=== PATIENT | female | born 1955 | race Caucasian/White ===

== ENCOUNTER 2017-12-12 09:27 | Day surgery (SDC) | payer MEDICARE, BC ==
[2017-12-07 15:47] VITALS: BMI 18.5
[~2017-12-12 09:27] MED LIST: LACTATED RINGERS 1,000 ML IV SCH; LIDOCAINE 1% 20 ML VIAL (10MG/ML) FOR IV START INTRADERMA PRN
[2017-12-12 09:47] VITALS: TEMP 99
[2017-12-12] MEDS ORDERED: SODIUM CHLORIDE 0.9% 1,000 ML IV ONE (09:59)
[2017-12-12] MEDS ORDERED: LIDOCAINE 1% INJ 10MG/ML (20 ML MDV) ONE (10:10)
[2017-12-12] MEDS ORDERED: PROPOFOL 10 MG/ML 20 ML VIAL IV ONE (10:10)
--- NOTE | 2017-12-12 10:12 | P.GSHP ---
History of Present Illness H&P Date: 12/12/17 CHIEF COMPLAINT: Colon screen HISTORY OF PRESENT ILLNESS: The patient is a 62-year-old female who presents for colon screen. Lower endoscopy was offered for further evaluation and management. PAST MEDICAL HISTORY: Please see list. PAST SURGICAL HISTORY: Please see list. MEDICATIONS: Please see list. ALLERGIES: Please see list. SOCIAL HISTORY: No illicit drug use FAMILY HISTORY: No reports of Crohn disease or ulcerative colitis. REVIEW OF ORGAN SYSTEMS: CONSTITUTIONAL: No reports of fevers or chills. PHYSICAL EXAM: VITAL SIGNS: Stable GENERAL: Well-developed pleasant in no acute distress. HEENT: No scleral icterus. Extraocular movements grossly intact. Moist buccal mucosa. NECK: Supple without lymphadenopathy. CHEST: Unlabored respirations. Equal bilateral excursions. CARDIOVASCULAR: Regular rate and rhythm. Distal 2+ pulses. ABDOMEN: Soft, nontender, nondistended. MUSCULOSKELETAL: No clubbing, cyanosis, or edema. ASSESSMENT: 1. Colon screen. PLAN: 1. Recommend proceeding with a lower endoscopy Past Medical History Past Medical History: Dialysis, Deep Vein Thrombosis (DVT), Renal Disease, Thyroid Disorder Additional Past Medical History / Comment(s): ANEMIA. PERITONEAL DIALYSIS. DVT RT LEG History of Any Multi-Drug Resistant Organisms: None Reported Additional Past Surgical History / Comment(s): ABDOMINAL DIALYSIS CATHETER. THYROIDECTOMY. COLONOSCOPY Past Anesthesia/Blood Transfusion Reactions: No Reported Reaction Past Psychological History: No Psychological Hx Reported Smoking Status: Former smoker Past Alcohol Use History: None Reported Additional Past Alcohol Use History / Comment(s): QUIT SMOKING 2011 Past Drug Use History: Marijuana Additional Drug Use History / Comment(s): SMOKES MARIJUANA DAILY-INSTRUCTED TO REFRAIN FROM USE AT LEST 24 HOURS PRIOR TO PROCEDURE - Past Family History Mother Family Medical History: Deep Vein Thrombosis (DVT) Father Family Medical History: Cancer Medications and Allergies Home Medications Medication Instructions Recorded Confirmed Type Ferrous Sulfate [Feosol] 325 mg PO DAILY 12/07/17 12/07/17 History Levothyroxine Sodium [Synthroid] 100 mcg PO DAILY 12/07/17 12/07/17 History Renaplex-D 1 each PO DAILY 12/07/17 12/12/17 History Allergies Allergy/AdvReac Type Severity Reaction Status Date / Time codeine AdvReac Abdominal Verified 12/07/17 15:39 Pain Surgical - Exam Vital Signs Temp Pulse Resp BP Pulse Ox 98 F 81 18 112/76 97 12/12/17 09:45 12/12/17 09:45 12/12/17 09:45 12/12/17 09:45 12/12/17 09:45
--- NOTE | 2017-12-12 10:42 | P.PCN ---
Date of Procedure: 12/12/17 Description of Procedure: PREOPERATIVE DIAGNOSIS: Colonoscopy screening. History of colon polyps. POSTOPERATIVE DIAGNOSIS: Colonoscopy screening. History of colon polyps. External hemorrhoids, grade 4. Sigmoid volvulus OPERATION: Colonoscopy to the hepatic flexure. SURGEON: Kerri Marcelo MD. ANESTHESIA: MAC. INDICATIONS: The patient is a 62-year-old female who presents for colonoscopy screening. Her last colonoscopy was within 3 to 5 years ago. Benefits and risks were described and informed consent was obtained. DESCRIPTION OF PROCEDURE: The patient had undergone Gatorade, MiraLAX and Dulcolax prep. She had been brought into the operating room and laid in the left lateral decubitus position. After adequate intravenous sedation, the rectum was examined with 2% lidocaine jelly. External hemorrhoids were encountered. The rectal tone was loose. No lesions were palpated in the rectal vault. An Olympus gastric colonoscope was advanced along the rectum to a very tortuous sigmoid colon. Her colonoscopy was complicated with her incontinence to flatus. Despite multiple maneuvers, the sigmoid colon had severe tortuosity preventing further advancement of scope beyond the hepatic flexure where a tattoo was identified. No recurrence of tumor along the hepatic flexure was identified. As the patient posed high risk for perforation with persistence of the procedure, the procedure was discontinued. The colon was desufflated. The patient had tolerated the procedure well. Withdrawal time was over 6 minutes. FINDINGS: Tortuous sigmoid colon with sigmoid volvulus preventing further advancement of the scope. External prolapsed hemorrhoids, grade 4. Scope advanced to the hepatic flexure. No arteriovenous malformations. No adenomatous polyps. No focal colitis. RECOMMENDATIONS: Completion of colonoscopy evaluation with barium enema.
[2017-12-12 10:47] VITALS: RESP 16
[2017-12-12 11:14] VITALS: BP 144/79; PULSE 70
--- NOTE | 2017-12-12 16:24 | FL ---
EXAMINATION TYPE: FL barium enema DATE OF EXAM: 12/12/2017 COMPARISON: NONE HISTORY: Incomplete colonoscopy TECHNIQUE: A double air contrast barium enema study is performed. Contrast followed by air was reflu xed through the colon to the appendix. Reflux into the terminal ileum was not evident. Patient harsh ated the procedure well. FINDINGS: Reliability Engineer view of the abdomen shows overall non-obstructive bowel gas pattern. Note is made of the patient's peritoneal dialysis catheter. No suspicious area of circumferential narrowing was evident. No suspicious filling defects are eviden t. There is a single diverticulum within the mid transverse colon. The presacral space appears unrema rkable. There is normal post evacuation residual. The sigmoid colon and transverse colon are redundan t. Appendix was filled and appeared normal. Fluoroscopy time: 4 minutes 56 seconds Images: 22 IMPRESSION: 1. Normal double contrast barium enema.
== END 2017-12-12 13:29 | disposition home or self-care (01) ==
LOC: ORWHC2ENDO 09:27
PROVIDERS: ATTEND Surgery Plastic and Reconstructive Surgery
DX: Z12.11 Encounter for screening for malignant neoplasm of colon (principal); Q43.8 Other specified congenital malformations of intestine; K56.2 Volvulus; K64.3 Fourth degree hemorrhoids; Z86.010 Personal history of colon polyps; E07.9 Disorder of thyroid, unspecified; D64.9 Anemia, unspecified; N18.6 End stage renal disease; Z99.2 Dependence on renal dialysis; Z86.718 Personal history of other venous thrombosis and embolism; Z87.891 Personal history of nicotine dependence; Z79.899 Other long term (current) drug therapy; Z88.5 Allergy status to narcotic agent
CPT/HCPCS: 74270; J2001; J2704; G0105; 45378

== ENCOUNTER → 2018-02-19 | Outpatient (CLI) | payer MEDICARE, BC ==
[2018-02-19 14:33] LABS: Basophils # (A) 0.1 k/uL (0-0.2); Basophils % (A) 1 %; Eosinophils # (A) 0.4 k/uL (0-0.7); Eosinophils % (A) 3 %; HCT 36.7 % (34.0-46.0); HGB 12.5 gm/dL (11.4-16.0); Lymphocytes # (A) 2.2 k/uL (1.0-4.8); Lymphocytes % (A) 19 %; MCH 34.1 pg (25.0-35.0); MCHC 34.2 g/dL (31.0-37.0); MCV 99.5 fL (80.0-100.0); Mean Platelet Volume 7.7; Monocytes # (A) 0.6 k/uL (0-1.0); Monocytes % (A) 5 %; Neutrophils # (A) 8.1 k/uL (1.3-7.7); Neutrophils % (A) 70 %; Platelet Count 273 k/uL (150-450); RBC 3.68 m/uL (3.80-5.40); RDW 13.3 % (11.5-15.5); WBC 11.7 k/uL (3.8-10.6)
[2018-02-19 14:53] LABS: Albumin 3.7 g/dL (3.5-5.0); Calcium 10.2 mg/dL (8.4-10.2); Potassium 3.8 mmol/L (3.5-5.1); Total Bilirubin 0.6 mg/dL (0.2-1.3); Total Protein 5.8 g/dL (6.3-8.2)
--- NOTE | 2018-02-19 14:53 | XR ---
EXAMINATION TYPE: XR chest 2V DATE OF EXAM: 02/19/2018 COMPARISON: 02/19/2018 HISTORY: Shortness of breath TECHNIQUE: Frontal and lateral views of the chest are obtained. FINDINGS: Scattered senescent parenchymal changes noted. Hyperinflation compatible with COPD. No evidence for infiltrate. No evidence for atelectasis. Heart size is stable. Mediastinal structures are stable and grossly unremarkable. No evidence for hilar prominence. Degenerative changes dorsal spine. IMPRESSION: 1. No evidence for acute pulmonary disease.
== END | disposition home or self-care (01) ==
LOC: LABPAT 13:10
PROVIDERS: ATTEND Surgery Plastic and Reconstructive Surgery
DX: Z01.818 Encounter for other preprocedural examination (principal); K56.2 Volvulus; Z01.812 Encounter for preprocedural laboratory examination
CPT/HCPCS: 36415; 71046; 80053; 85025

== ENCOUNTER 2018-03-01 09:20 | Inpatient (IN) | payer MEDICARE, BC ==
[2018-02-20 15:44] VITALS: BMI 18.3
--- NOTE | 2018-03-01 07:50 | P.GSHP ---
History of Present Illness H&P Date: 03/01/18 CHIEF COMPLAINT: History of sigmoid volvulus HISTORY OF PRESENT ILLNESS: The patient is a 62-year-old female with long- standing history of chronic constipation including large bowel obstruction secondary to sigmoid volvulus. Now she presents for sigmoid colon resection. PAST MEDICAL HISTORY: Please see list. PAST SURGICAL HISTORY: Please see list. MEDICATIONS: Please see list. ALLERGIES: Please see list. SOCIAL HISTORY: No illicit drug use FAMILY HISTORY: No reports of Crohn disease or ulcerative colitis. REVIEW OF ORGAN SYSTEMS: Additionally reports: : End stage kidney disease. Peritoneal dialysis. Also has a AV fistula. Cardiovascular: History of hypertension. AV shunt along the left upper arm. CONSTITUTIONAL: No fevers or chills. HEENT: Denies any trouble with vision, hearing or nosebleeds. No difficulty swallowing. LYMPHATIC: The patient denies any lumps and bumps around the neck. ENDOCRINE: Has thyroid disorders. Denies any blood sugar glucose intolerance. RESPIRATORY: Denies pneumonia. Denies any troubles with breathing or dyspnea on exertion. GASTROINTESTINAL: Denies fatty food intolerance. Denies change in bowel habits and gas bloat. MUSCULOSKELETAL: Denies any back pain, stiffness or joint arthritis. NEUROLOGIC: Denies any numbness or tingling along the distal extremities. No seizure disorders or headaches. PSYCHIATRIC: Denies any depression or suicidal ideation. HEMATOLOGIC: Denies any abnormal bleeding or bruising. BREASTS: Denies any breast lumps, pain or nipple discharge. SKIN: No current skin cancer. No rash. HEMATOLOGIC: Denies any abnormal bleeding or bruising. PHYSICAL EXAM: VITAL SIGNS: Stable Patient is a 62-year-old female. Musculoskeletal: Left arm arteriovenous fistula with palpable thrill. Abdomen: Findings consistent with peritoneal dialysis. GENERAL: Well developed and in no acute distress. Pleasant. HEENT: No sclera icterus. Extraocular movements grossly intact. Moist buccal mucosa. Head is atraumatic, normocephalic. Hears conversational speech. No nasal drainage. NECK: Supple without lymphadenopathy. No JV distention. CHEST: Non-labored respirations and equal bilateral excursions. CARDIOVASCULAR: Regular rate and rhythm. Palpable 2+ radial pulses. NEUROLOGIC: No focal or lateralizing signs. PSYCH: Appropriate affect. Alert and oriented to person, place and time. SKIN: Well perfused. Good skin turgor. STUDIES: Barium enema study with double contrast was reviewed without any findings of mucosal polyps. Single diverticular following along the sigmoid colon. Extremely redundant sigmoid colon with risk of sigmoid volvulus was identified. Please note that the actual images were reviewed with the patient and family. ASSESSMENT: 1. Chronic constipation. 2. Sigmoid volvulus risk. 3. Peritoneal dialysis. 4. End stage renal disease. PLAN: 1. Inpatient hospitalization anticipated for over 1-2 nights. 2. Benefits and risks of surgical intervention particular sigmoid volvulus reviewed in detail. Robotic-assisted approach was also described. 3. She has completed an enhanced colon recovery program. 4. DVT prophylaxis. 5. Antibiotic prophylaxis. 6. For dialysis, extensive discussion with her boring machine set up operator jig performed where she will use her AV shunt. Past Medical History Past Medical History: Dialysis, Deep Vein Thrombosis (DVT), Renal Disease, Thyroid Disorder Additional Past Medical History / Comment(s): ANEMIA,PERITONEAL DIALYSIS,DVT RT LEG,polycystic kidney disease, pt on tranplant list at [facility] History of Any Multi-Drug Resistant Organisms: None Reported Additional Past Surgical History / Comment(s): ABDOMINAL DIALYSIS CATHETER. THYROIDECTOMY. COLONOSCOPY Past Anesthesia/Blood Transfusion Reactions: No Reported Reaction Smoking Status: Former smoker - Past Family History Mother Family Medical History: Deep Vein Thrombosis (DVT) Father Family Medical History: Cancer Medications and Allergies Home Medications Medication Instructions Recorded Confirmed Type Ferrous Sulfate [Feosol] 325 mg PO DAILY 12/07/17 02/20/18 History Levothyroxine Sodium [Synthroid] 100 mcg PO DAILY 12/07/17 02/20/18 History Renaplex-D 1 each PO DAILY 12/07/17 02/20/18 History Velphoro 1,000 mg PO AC-TID 02/20/18 02/20/18 History Allergies Allergy/AdvReac Type Severity Reaction Status Date / Time codeine AdvReac Abdominal Verified 02/20/18 15:17 Pain
[~2018-03-01 09:20] MED LIST changes: +ALVIMOPAN 12 MG CAPSULE PO ONE; +Antibiotics per Pharmacy 1 EACH MISC MISCELLANE PRN; +DEXAMETHASONE SOD PHOSPHATE 10 MG/ML 1 ML VIAL IV ONE; +HEPARIN SODIUM,PORCINE 5,000 UNIT/ML 1 ML VIAL SQ ONE; +HYDROmorphone 0.5 MG/0.5 ML SYRINGE IVP PRN; -LACTATED RINGERS 1,000 ML IV SCH; +MIDAZOLAM 2 MG/2 ML VIAL IV PRN; +MORPHINE SULFATE 2 MG/ML SYRINGE IV PRN; +ONDANSETRON 4 MG/2 ML VIAL IVP ONE; +SCOPOLAMINE 1.5MG/72HR PATCH TRANSDERM ONE; +ceFAZolin IN SWFI 2 GM/20 ML SYRINGE IVP ONE; +metroNIDAZOLE-NS PMX 500 MG in SALINE 1 100ML.BAG IVPB ONE
[2018-03-01 10:09] LABS: Basophils # (A) 0.1 k/uL (0-0.2); Basophils % (A) 1 %; Eosinophils # (A) 0.2 k/uL (0-0.7); Eosinophils % (A) 1 %; HCT 42.8 % (34.0-46.0); HGB 14.3 gm/dL (11.4-16.0); Lymphocytes # (A) 1.8 k/uL (1.0-4.8); Lymphocytes % (A) 13 %; MCH 33.4 pg (25.0-35.0); MCHC 33.3 g/dL (31.0-37.0); MCV 100.1 fL (80.0-100.0); Mean Platelet Volume 8.1; Monocytes # (A) 0.6 k/uL (0-1.0); Monocytes % (A) 4 %; Neutrophils # (A) 11.4 k/uL (1.3-7.7); Neutrophils % (A) 80 %; Platelet Count 303 k/uL (150-450); RBC 4.28 m/uL (3.80-5.40); RDW 13.3 % (11.5-15.5); WBC 14.3 k/uL (3.8-10.6)
[2018-03-01] MEDS ORDERED: SODIUM CHLORIDE 0.9% 1,000 ML IV ONE (10:09)
[2018-03-01] MEDS ORDERED: MIDAZOLAM 2 MG/2 ML VIAL ONE (10:58)
[2018-03-01] MEDS ORDERED: fentaNYL (PF) 50 MCG/ML 2 ML AMP ONE (10:58)
[2018-03-01] MEDS ORDERED: LIDOCAINE 1% INJ 10MG/ML (20 ML MDV) ONE (10:58)
[2018-03-01] MEDS ORDERED: GLYCOPYRROLATE 0.2 MG/ML 2 ML VIAL ONE (10:58)
[2018-03-01] MEDS ORDERED: NEOSTIGMINE 1 MG/ML 10 ML VIAL ONE (10:58)
[2018-03-01] MEDS ORDERED: PHENYLEPHRINE-0.9% NACL SYG 1 MG/10 ML SYRINGE ONE (10:58)
[2018-03-01] MEDS ORDERED: PROPOFOL 10 MG/ML 20 ML VIAL IV ONE (10:58)
[2018-03-01] MEDS ORDERED: SUCCINYLCHOLINE CHLORIDE 100 MG/5 ML SYR IV ONE (10:58)
[2018-03-01] MEDS ORDERED: CISATRACURIUM 2 MG/ML 5 ML VIAL IV ONE (10:58)
[2018-03-01] MEDS ORDERED: LACTATED RINGERS 1,000 ML IV ONE (10:58)
[2018-03-01] MEDS ORDERED: BUPIVACAINE (PF) 0.25% 30 ML VIAL SQ ONE (11:32)
[2018-03-01] MEDS ORDERED: BENZOCAINE/MENTHOL LOZENG 1 EACH LOZENGE MUCOUS MEM PRN (14:19)
--- NOTE | 2018-03-01 14:19 | P.PCN ---
Date of Procedure: 03/01/18 Preoperative Diagnosis: Sigmoid volvulus, chronic constipation, chronic renal failure, end-stage renal disease, dialysis dependent Postoperative Diagnosis: Same Procedure(s) Performed: Robotic sigmoid colectomy Anesthesia: GETA, local Surgeon: Kerri Marcelo Estimated Blood Loss (ml): 10 Pathology: other (Sigmoid colon) Condition: stable Disposition: floor Operative Findings: 1. Redundant sigmoid colon across of sigmoid volvulus resected 2. Tattoo dye from previous colonoscopy 3. Linear intracorporeal anastomosis, isoperistaltic [id number] colonic anastomosis 4. Total left 3 staple loads, 45 mm blue loads 5. Console time 126 minutes
[2018-03-01] MEDS: LACTATED RINGERS 1,000 ML IV SCH (16:54)
--- NOTE | 2018-03-01 17:14 | P.OP ---
Date of Procedure: 03/01/18 Description of Procedure: SURGEON: RANDY BORJA MD CELLOPHANE BAG MACHINE OPERATOR: DEMETRA PAUL PREOPERATIVE DIAGNOSES: 1. Sigmoid volvulus. 2. End-stage renal disease, dialysis dependent 3. Chronic constipation. 4. Iron deficiency anemia due to chronic disease 5. Kidney transplant candidate 6. Peritoneal dialysis status 7. Anuria 8. BMI 18.4 POSTOPERATIVE DIAGNOSES: 1. Sigmoid volvulus. 2. End-stage renal disease, dialysis dependent 3. Chronic constipation. 4. Iron deficiency anemia due to chronic disease 5. Kidney transplant candidate 6. Peritoneal dialysis status 7. Peritoneal adhesion 8. Anuria 9. BMI 18.4 OPERATION: 1. Robotic-assisted daVinci Xi laparoscopic sigmoid colectomy, multi-port ANESTHESIA: General with local ESTIMATED BLOOD LOSS: 10 mL SPECIMENS REMOVED: sigmoid colon FINDINGS: 1. Peritoneal adhesion left upper quadrant from previous peritoneal dialysis 2. Linear intracorporeal isoperistaltic anastomosis colo-colon anastomosis using 45 mm blue staple load. 3. At least 3 staplers robotic used, 45 mm blue load. 4. Robotic arms using multiport, stapler along the right upper and left upper quadrant. 5. All ports place 15 to 20 cm away from target anatomy, the sigmoid colon. 6. Specimen extracted from the left upper quadrant port. 7. Anastomosis oversewn using 3-0 silk and 3-0 Vicryl 8. Peritoneal dialysis catheter within the pelvis and unharmed throughout the procedure 9. Moderate fibrinous deposits and changes of the small bowel serosa from peritoneal dialysis INDICATIONS: The patient is a 62-year-old female who presents with several year history of chronic constipation and sigmoid volvulus. Surgical options were described. Benefits and risks, including infection, possibility for additional surgery, including possible colostomy was discussed at length. Informed consent was obtained. All questions of the patient and family were answered. DESCRIPTION: Earlier the patient had undergone a bowel prep using the enhanced colon recovery program. The patient was transferred to the operating room and placed supine. The patient was then intubated. A Denise catheter was avoided as the patient is completely anuric from end-stage renal disease. The abdomen was then prepped and draped in standard sterile fashion. After a timeout protocol was performed, attention was then brought to the left upper quadrant whereby a 0 degree 5 mm laparoscopic trocar entry was performed. The abdominal cavity was entered and insufflated to 15 mmHg pressure, which she tolerated well. Diagnostic laparoscopy demonstrated an adhesion along the left upper quadrant including moderate fibrous deposits along the small bowel system with peritoneal dialysis. The sigmoid colon was moderately redundant. All 3 arms of the robot were used. Next an robotic 8-mm trocar was placed along the left lateral abdominal wall 15 cm proximal from the pelvis. A 12 mm port was placed along the right lateral abdominal wall followed by another robotic 8-mm port placed along the right upper quadrant. Ports were placed 8 cm apart from each other including 15 away from the target anatomy of the left pelvis. The 5-mm port was exchanged for an 8 mm robotic port. The stapler 12- mm port was placed along the right lateral and left lateral abdominal wall. The patient was then placed in Trendelenburg position, 20. The anterior surface of the volvulized sigmoid colon was marked using 3-0 silk along the proximal and distal ends for proposed resection. The robotic da Kareen Xi system was primed. The robot was docked along the left-side of the patient. Using a grasper for arm 1, a grasper for arm 3, including vessel sealer for arm 4, the robotic system was docked and primed as described. Instruments were interchanged by the food and beverage assistant including scissors the cartridge, needle taxi cab driver, robotic stapler and vessel sealer. Next, attention was brought to identify the rectum. A stay suture using 0 silk was placed along the anterior serosa of the descending colon including along the rectum. An active sigmoid volvulus was identified and rotated along its normal anatomical position along its mesentery. The volvulus was reduced. The sigmoid mesentery was mobilized using a vessel sealer whereby the distal sigmoid colon was marked and tagged. Using robot stapler 45 mm blue load, the distal redundant sigmoid colon was divided. The mesentery of the sigmoid colon was mobilized towards the descending colon using a vessel sealer. Next, the proximal sigmoid colon was divided using robotic stapler 45 mm blue load. The descending colon was similarly marked using 3-0 silk. The rest of the sigmoid colon mesentery was mobilized using vessel sealer. The proximal and distal colon was brought in an isoperistaltic fashion after placing interrupted sutures along the proposed delmis-lumen using 3-0 silk. Along the tinea coli of the proximal including distal limbs, a colotomy was prepared along both limbs. Next, a 45 mm stapler was fired to create the delmis-lumen. The colotomy of the delmis-lumen was closed using 3-0 Vicryl and 3-0 silk. The pelvis was irrigated using normal saline until clear as the patient has history of peritoneal dialysis. The catheter was within the pelvis. A sponge was used to remove all fluid from the pelvis. The robot was undocked. I re-scrubbed into the case. Via the 12 mm port of the left upper lateral trocar, the colon was removed All sponges were removed from the abdominal cavity. No contamination had occurred throughout the case. The 12-mm fascial defect was oversewn using 0 Vicryl and a Elvis Purvis. Similarly, the 12 mm trocar site of the right upper quadrant was also oversewn along its fascia using 0 Vicryl and a Elvis Purvis. Next all pneumoperitoneum was evacuated from the abdominal cavity. The 8-mm trocar sites were reapproximated using 4-0 Monocryl in an interrupted subcuticular fashion. The larger trocar sites were irrigated using warm normal saline and hydrogen peroxide solution of the colon extraction site. Local anesthetic was infiltrated to all wounds for postop analgesia. An Optifoam surgical dressing was placed over the colon extraction site. Dermabond was applied to the rest of the skin incisions. The patient had tolerated the procedure well. Estimated blood loss was approximately 5 mL. The patient was extubated successfully. Intraoperative photos were reviewed with the patient's family who were overall pleased with the level of care. The patient was transferred to the postanesthesia care unit in stable condition.
[2018-03-01] MEDS: SEVELAMER 800 MG TAB PO SCH (18:45)
[2018-03-01] MEDS: HEPARIN SODIUM,PORCINE 5,000 UNIT/ML 1 ML VIAL SQ SCH (18:46)
[2018-03-01] MEDS: ceFAZolin IN SWFI 2 GM/20 ML SYRINGE IVP SCH (20:37)
[2018-03-01] MEDS: FAMOTIDINE 20 MG/2 ML VIAL IV SCH (20:37)
[2018-03-01] MEDS: METOCLOPRAMIDE 5 MG/ML 2 ML VIAL IVP PRN (20:45)
[2018-03-02] MEDS: HEPARIN SODIUM,PORCINE 5,000 UNIT/ML 1 ML VIAL SQ SCH ×3 (00:02→18:34)
[2018-03-02] MEDS: ceFAZolin IN SWFI 2 GM/20 ML SYRINGE IVP SCH (04:40)
[2018-03-02] MEDS: LACTATED RINGERS 1,000 ML IV SCH (04:43)
[2018-03-02] MEDS: metroNIDAZOLE-NS PMX 500 MG in SALINE 1 100ML.BAG IVPB SCH ×3 (05:42→13:54)
[2018-03-02] MEDS: LEVOTHYROXINE 100 MCG TAB PO SCH (05:46)
[2018-03-02 07:47] LABS: Calcium 9.5 mg/dL (8.4-10.2); Potassium 4.5 mmol/L (3.5-5.1)
[2018-03-02 07:48] LABS: Basophils # (A) 0.1 k/uL (0-0.2); Basophils % (A) 0 %; Eosinophils % (A) 0 %; HCT 41.1 % (34.0-46.0); HGB 13.5 gm/dL (11.4-16.0); Lymphocytes # (A) 1.5 k/uL (1.0-4.8); Lymphocytes % (A) 8 %; MCH 33.4 pg (25.0-35.0); MCHC 32.7 g/dL (31.0-37.0); MCV 102.2 fL (80.0-100.0); Macrocytosis Slight; Mean Platelet Volume 7.5; Monocytes # (A) 0.9 k/uL (0-1.0); Monocytes % (A) 5 %; Neutrophils # (A) 15.7 k/uL (1.3-7.7); Neutrophils % (A) 85 %; Platelet Count 276 k/uL (150-450); RBC 4.03 m/uL (3.80-5.40); RDW 13.7 % (11.5-15.5); WBC 18.5 k/uL (3.8-10.6)
[2018-03-02] MEDS: ONDANSETRON 4 MG/2 ML VIAL IVP PRN (11:15)
[2018-03-02] MEDS: SEVELAMER 800 MG TAB PO SCH ×3 (11:25→18:34)
[2018-03-02] MEDS: SODIUM CHLORIDE 0.9% 1,000 ML IV SCH (11:25)
[2018-03-02] MEDS: FOLIC ACID-VIT B COMPLEX-VIT C 1 CAP PO SCH (11:26)
[2018-03-02] MEDS: FAMOTIDINE 20 MG/2 ML VIAL IV SCH ×2 (11:29→22:18)
--- NOTE | 2018-03-02 12:48 | CONS ---
CONSULTATION REASON FOR CONSULT: End-stage renal disease. HISTORY OF PRESENT ILLNESS: Patient is a 62-year-old female with end-stage renal disease, on hemodialysis to be started on a Sunday, , Sunday schedule at [facility]. The patient has been on dialysis for about 5 years now. She had been on PD, which is currently on hold, as a yesterday patient had robotic sigmoid colectomy. She has an AV fistula in her right upper arm. The patient had her last dialysis on . She was using a cycler. Her creatinine this morning was at 14.6. Previous labs shows a creatinine of 15.5 on 02/19/2018 as well. Currently, patient is maintained on IV fluids. Her potassium is not elevated. PAST MEDICAL HISTORY: End-stage renal disease from chronic constipation, anemia of chronic disease, CKD mineral bone disorder, history of DVT, polycystic kidney disease. PAST SURGICAL HISTORY: PD catheter placement, AV fistula, right arm, colonoscopy, thyroidectomy. SOCIAL HISTORY: Patient is a former smoker. No history of drug abuse or alcohol abuse. MEDICATIONS: Medications at home prior to admission and included Velphoro, RenaPlex, Synthroid and iron. ALLERGIES: Include CODEINE. EXAMINATION: Patient is comfortable. She is awake and alert, not in any acute distress. Blood pressure is a 133/79, heart rate 63 per minute patient is afebrile. Examination of the heart S1, S2. Examination lungs bilateral breath sounds are heard. Abdomen is currently tender postoperatively. PD catheter is in place. Examination lower extremity shows no evidence of edema. Patient has a right upper arm AV fistula. LABS: Show sodium 135, potassium 4.5, hemoglobin 13.5, serum creatinine 14.6, CO2 was at 17. ASSESSMENT: 1. End-stage renal disease. The patient had been on peritoneal dialysis. She will be switched over to hemodialysis. The patient is reluctant to have her first treatment today. I have advised her that her serum creatinine is elevated. She will likely need a treatment tomorrow or day after on Sunday. I doubt that she can wait till Sunday given her metabolic acidosis and significantly elevated creatinine. The patient is scheduled for outpatient dialysis on a Sunday, , Sunday schedule at [facility]. Her primary automotive service porter is Dr. Owen. 2. Status post a sigmoid colectomy for chronic constipation and history of volvulus and bowel obstruction. 3. Metabolic acidosis secondary to renal failure. 4. CKD mineral bone disorder maintained on Velphoro. Currently started liquid diet. PLAN: Repeat labs in a.m. The patient will likely need dialysis tomorrow or Sunday. I will also decrease the fluids to 50 mL an hours since she has no urine output. Check phosphorus levels with next set of labs and may continue with the Renvela for now as I believe Velphoro is non formulary. Thank you for this consultation. We will continue to follow the patient with you during her hospitalization. MMODL / IJN: [id number] /
--- NOTE | 2018-03-02 12:49 | P.PN ---
Subjective Progress Note Date: 03/02/18 Patient is status post sigmoid colectomy for sigmoid volvulus. She has baseline history of pre-existing persistent leukocytosis including end-stage renal disease dialysis dependent. She uses peritoneal dialysis. She denies any signs of infection prior to her surgery however. No fevers or chills. No nausea and vomiting. No reports of lower abdominal pain. She has appropriate incisional pain of the bilateral upper abdomen. Objective - Vital Signs Vital signs: Vital Signs Temp 97.7 F 03/02/18 07:00 Pulse 60 03/02/18 07:00 Resp 18 03/02/18 07:00 BP 157/77 03/02/18 07:00 Pulse Ox 100 03/02/18 07:00 Intake & Output 03/01/18 03/02/18 03/02/18 18:59 06:59 18:59 Intake Total 1075 120 Output Total 10 0 Balance 1065 0 120 Weight 48.534 kg 48.534 kg Intake: IV 1075 Oral 120 Output: Urine 0 Estimated Blood Loss 10 Other: # Voids 0 - Exam GENERAL: Well developed and in no acute distress. Pleasant. HEENT: No sclera icterus. Extraocular movements grossly intact. Moist buccal mucosa. Head is atraumatic, normocephalic. Hears conversational speech. No nasal drainage. CHEST: Non-labored respirations and equal bilateral excursions. CARDIOVASCULAR: Regular rate and rhythm. Left upper arm AV shunt functioning ABDOMEN: Soft, nondistended. Incisions clean dry and intact. No bilateral lower abdomen tenderness. Appropriate incisional tenderness bilateral upper abdomen MUSCULOSKELETAL: No clubbing, cyanosis or edema. NEUROLOGIC: No focal or lateralizing signs. PSYCH: Appropriate affect. Alert and oriented to person, place and time. SKIN: Good skin turgor. Well perfused. - Labs CBC & Chem 7: 03/02/18 07:11 03/02/18 07:11 Labs: Abnormal Lab Results - Last 24 Hours (Table) 03/02/18 03/02/18 Range/Units 07:11 07:11 WBC 18.5 H (3.8-10.6) k/uL MCV 102.2 H (80.0-100.0) fL Neutrophils # 15.7 H (1.3-7.7) k/uL Sodium 135 L (137-145) mmol/L Chloride 97 L (98-107) mmol/L Carbon Dioxide 17 L (22-30) mmol/L BUN 53 H (7-17) mg/dL Creatinine 14.60 H* (0.52-1.04) mg/dL Assessment and Plan (1) Volvulus of sigmoid colon Current Visit: Yes Status: Acute Code(s): K56.2 - VOLVULUS SNOMED Code(s) : 295087745 (2) Peritoneal dialysis catheter in place Current Visit: Yes Status: Acute Code(s): Z99.2 - DEPENDENCE ON RENAL DIALYSIS SNOMED Code(s): 432398479 (3) Dependence on renal dialysis Current Visit: Yes Status: Acute Code(s): Z99.2 - DEPENDENCE ON RENAL DIALYSIS SNOMED Code(s): 598618696 (4) End stage renal disease Current Visit: Yes Status: Acute Code(s): N18.6 - END STAGE RENAL DISEASE SNOMED Code(s): 67050802 (5) Chronic constipation Current Visit: Yes Status: Acute Code(s): K59.09 - OTHER CONSTIPATION SNOMED Code(s): 098497764 (6) Anemia due to chronic kidney disease Current Visit: Yes Status: Acute Code(s): N18.9 - CHRONIC KIDNEY DISEASE, UNSPECIFIED; D63.1 - ANEMIA IN CHRONIC KIDNEY DISEASE SNOMED Code(s): 630229818 (7) Underweight Current Visit: Yes Status: Acute Code(s): R63.6 - UNDERWEIGHT SNOMED Code( s): 743023747 (8) Leukocytosis (leucocytosis) Current Visit: Yes Status: Acute Code(s): D72.829 - ELEVATED WHITE BLOOD CELL COUNT, UNSPECIFIED SNOMED Code(s): 695603105 (9) Body mass index (BMI) 19.9 or less, adult Current Visit: Yes Status: Acute Code(s): Z68.1 - BODY MASS INDEX (BMI) 19.9 OR LESS, ADULT SNOMED Code(s): 438268861 Plan: 1. She has pre-existing leukocytosis prior to her operation. Infectious disease consultation performed 2. Nephrology for dialysis management. Patient has a left AV shunt 3. Patient is deemed high risk from her sigmoid colectomy. Inpatient hospitalization greater than 2 nights 4. Antibiotics adjusted for history of pre-existing leukocytosis 5. Obtain iron levels for chronic anemia 6. Adjust pain medication to morphine
[2018-03-02] MEDS: MORPHINE SULFATE 4MG/4ML SYRG IVP PRN ×2 (13:42→19:24)
[2018-03-02] MEDS: PIPERACILLIN-TAZOBACTAM 3.375 GM in DEXTROSE/WATER 1 50ML.BAG IVPB SCH ×2 (14:12→22:19)
[2018-03-02] MEDS ORDERED: PIPERACILLIN-TAZOBACTAM 3.375 GM in DEXTROSE/WATER 1 50ML.BAG IVPB SCH (16:00)
--- NOTE | 2018-03-02 23:35 | CONS ---
CONSULTATION DATE OF CONSULTATION: 03/02/2018 REASON FOR CONSULTATION: Medical management requested by Dr. Marcelo. CONSULTATION: This is a 62-year-old patient who follows with Dr. Woody. Chronic stable medical conditions include end-stage kidney disease, hypothyroid, polycystic kidney disease and chronic kidney disease with metabolic bone disease. The patient is on a transplant list at [facility]. The patient in November of this year underwent colonoscopy by Dr. Marcelo. She was unable to go past the sigmoid colon. A barium enema did show a redundant transverse and sigmoid colon. The patient had a scheduled surgery that she underwent yesterday and patient underwent a robotic sigmoid colectomy. Postprocedure, the patient is having some pain at the operative site. The patient has been on a clear liquid diet. No nausea, vomiting. The patient has been getting peritoneal dialysis and was due to switch over to hemodialysis on the , but seen by Dr. Ramirez in the hospital, wishes her to resume hemodialysis here in the hospital. The patient already has a right arm fistula. REVIEW OF SYSTEMS: CONSTITUTIONAL: Tired. HEENT: None. RESPIRATORY: None. CARDIOVASCULAR: None. GASTROINTESTINAL: As above. GENITOURINARY: None. MUSCULOSKELETAL: None. DERMATOLOGICAL: None. HEMATOLOGIC: None. LYMPHATIC: None. PSYCHIATRY: None. NEUROLOGICAL: None. PAST MEDICAL HISTORY: End-stage kidney disease, DVT at a very young age, hypothyroid, polycystic kidney disease. The patient is on transplant list at [facility]. Chronic kidney disease metabolic bone disease, metabolic acidosis, external hemorrhoids. PAST SURGICAL HISTORY: Peritoneal dialysis catheter placement, right arm fistula, thyroidectomy. SOCIAL HISTORY: The patient smoked a pack a day for 25 years, stopped in 2011. Smokes 2 or 3 marijuana joint a day, . FAMILY HISTORY: DVT. HOME MEDICATIONS: 1. Velphoro 1000 mg p.o. t.i.d. 2. Zanaflex 1 tablet p.o. daily. 3. Synthroid 100 mcg p.o. daily. 4. Iron 325 p.o. daily. ALLERGIES: CODEINE. EXAMINATION: Temperature 97.8, pulse 54, respirations 20, blood pressure 137/76, pulse ox 100% on 2L. GENERAL APPEARANCE: Average-built, sitting up, tired appearing. EYES: Pupils equal. Conjunctivae normal. HEENT: External nose and ears normal. Oral cavity normal. NECK: JVD not raised. Mass not palpable. RESPIRATORY: Effort normal. Lungs are clear. CARDIOVASCULAR: First and second sounds normal. No edema. ABDOMEN: Tender with an abdominal in place. The patient has a PD catheter in place. Liver, spleen not examined. LYMPHATICS: No lymph node palpable in neck or axillae. PSYCHIATRY: Alert and oriented x3. Mood and affect normal. NEUROLOGICAL: Pupils equal. Cranial nerve grossly intact. Power and sensation grossly intact. EXTREMITIES: Right upper arm has a fistula in place. INVESTIGATIONS: White count 18.5, hemoglobin 10.5. Potassium 4.5, bicarb 17, BUN 43, creatinine 14.60. ASSESSMENT: 1. Status post sigmoid colectomy for redundant sigmoid colon. 2. Metabolic acidosis from renal failure... 3. End-stage kidney disease, patient on hemodialysis, now to be switched over to peritoneal dialysis. 4. Hypothyroid. 5. Polycystic kidney disease. The patient is on transplant list. 6. Chronic kidney disease with mineral bone disease. PLAN: Home medications are resumed. The patient has Venodyne boots for DVT prophylaxis. I encouraged the patient to ambulate. The patient is on IV Zosyn. The patient is on clear liquids. Care was discussed the patient. Thank you, Dr. Marcelo. MMCHRISTINAL / HERBERTHN: [id number] /
--- NOTE | 2018-03-03 00:13 | P.CONS ---
History of Present Illness - Reason for Consult Consult date: 03/02/18 - Chief Complaint Abdominal pain - History of Present Illness 62-year-old female presents to Hospital for ongoing abdominal pain. She had an outpatient endoscopy which showed evidence of a sigmoid volvulus. With ongoing difficulties of the site she was taken For the elective resection of the volvulus. The patient has been having ongoing leukocytosis went undetermined etiology as of late. She does have a history of end-stage renal disease from polycystic kidney disease and has been treated with peritoneal dialysis. Her creatinine however is 12 revealing difficulties of the recent peritoneal dialysis and it's ineffective nature. She is to transition to hemo- dialysis with her abdominal surgery. Hopefully this will help her feel considerably better and help her with her significant uremia Review of Systems HEENT:Denies headache or acute visual change. Denies sinus or mouth discomforts. Denies neck stiffness or pain. Denies significant oral cavity pain. Denies difficulty on swallowing. Lungs: Denies significant shortness of breath, cough, sputum production, or hemoptysis. Cardiovascular: Denies significant shortness of breath, chest pain, chest wall pain, orthopnea, dyspnea on exertion, syncope Gastrointestinal: As per the HPI and had abdominal pain difficulty with her stools and some nausea. No hematemesis melena or hematochezia Musculoskeletal: denies significant myalgias or arthralgias. No new joint swelling. Denies new back pain. Skin: Denies new rash or lesions. No new ulcers or wounds are related.. Neuro: Denies headache or visual change. Denies any new onset weakness or difficulty with ambulation. Denies falls or seizures. Psychiatric:Denies anxiety or depression. Endocrine: Fatigue but weight has been stable Past Medical History Past Medical History: Dialysis, Deep Vein Thrombosis (DVT), Renal Disease, Thyroid Disorder Additional Past Medical History / Comment(s): ANEMIA,PERITONEAL DIALYSIS,DVT RT LEG,polycystic kidney disease, pt on tranplant list at [facility] History of Any Multi-Drug Resistant Organisms: None Reported Additional Past Surgical History / Comment(s): ABDOMINAL DIALYSIS CATHETER. THYROIDECTOMY. COLONOSCOPY Past Anesthesia/Blood Transfusion Reactions: No Reported Reaction Past Psychological History: No Psychological Hx Reported Additional Psychological History / Comment(s): . retired. no experience. no travel history. no pets. Positive tobacco use no recreational drug use Smoking Status: Former smoker Past Alcohol Use History: None Reported Additional Past Alcohol Use History / Comment(s): QUIT SMOKING 2011 smoked 25 years 1ppd Past Drug Use History: Marijuana Additional Drug Use History / Comment(s): SMOKES MARIJUANA DAILY 2-3 joints - Past Family History Mother Family Medical History: Deep Vein Thrombosis (DVT) Father Family Medical History: Cancer Medications and Allergies Home Medications and Allergies Comment(s): Current Medications Benzocaine/Menthol (Cepacol Lozenge) 1 each MUCOUS MEM Q1HR PRN PRN Reason: Sore Throat Famotidine (Pepcid) 20 mg IV BID [facility] Last Admin: 03/02/18 22:18 Dose: 20 mg Heparin Sodium (Porcine) (Heparin) 5,000 unit SQ Q8HR [facility] Last Admin: 03/02/18 18:34 Dose: 5,000 unit Sodium Chloride (Saline 0.9%) 1,000 mls @ 50 mls/hr IV .Q20H [facility] Last Admin: 03/02/18 11:25 Dose: 50 mls/hr Piperacillin/Tazobactam/ (Dextrose 3.375 gm/ IV Solution) 50 mls @ 12.5 mls/hr IVPB Q12HR [facility] Last Admin: 03/02/18 22:19 Dose: 12.5 mls/hr Levothyroxine Sodium (Synthroid) 100 mcg PO DAILY@0630 [facility] Last Admin: 03/02/18 05:46 Dose: 100 mcg Lidocaine HCl (.Xylocaine 1% Inj (10mg/Ml) For Iv Start) 0.1 ml INTRADERMA PER PROTOCOL PRN PRN Reason: IV Start Last Admin: 03/01/18 10:00 Dose: 0.1 ml Metoclopramide HCl (Reglan) 10 mg IVP Q6HR PRN PRN Reason: Nausea and Vomiting Last Admin: 03/01/18 20:45 Dose: 10 mg Morphine Sulfate (Morphine Sulfate (Inj)) 4 mg IVP Q4HR PRN PRN Reason: Pain Last Admin: 03/02/18 19:24 Dose: 4 mg Multivit/Ca Carb/B Cmplx/FA/Prenat (Nephrocaps) 1 each PO DAILY [facility] Last Admin: 03/02/18 11:26 Dose: Not Given Ondansetron HCl (Zofran) 4 mg IVP Q8HR PRN PRN Reason: Nausea And Vomiting Last Admin: 03/02/18 11:15 Dose: 4 mg Sevelamer Carbonate (Renvela) 1,600 mg PO AC-TID [facility] Last Admin: 03/02/18 18:34 Dose: Not Given Home Medications Medication Instructions Recorded Confirmed Type Ferrous Sulfate [Feosol] 325 mg PO DAILY 12/07/17 03/01/18 History Levothyroxine Sodium [Synthroid] 100 mcg PO DAILY 12/07/17 03/01/18 History Renaplex-D 1 tab PO DAILY 12/07/17 03/01/18 History Velphoro 1,000 mg PO AC-TID 02/20/18 03/01/18 History Allergies Allergy/AdvReac Type Severity Reaction Status Date / Time codeine AdvReac Abdominal Verified 03/01/18 15:26 Pain Physical Exam Vitals: Vital Signs Temp Pulse Resp BP Pulse Ox 03/02/18 15:00 97.8 F 64 20 137/76 100 03/02/18 07:00 97.7 F 60 18 157/77 100 03/02/18 03:11 97.2 F L 63 16 133/79 98 03/02/18 00:00 63 16 Intake and Output 03/02/18 03/02/18 03/03/18 14:59 22:59 06:59 Intake Total 1120 360 Output Total 0 Balance 1120 360 Intake: Intake, IV Titration 500 Amount Piperacillin-Tazobactam 3 50 .375 gm In Dextrose/Water 1 50ml.bag @ 12.5 mls/hr IVPB Q12HR [facility] Rx#: [id number] Piperacillin-Tazobactam 3 350 .375 gm In Dextrose/Water 1 50ml.bag @ 12.5 mls/hr IVPB Q8HR [facility] Rx#: [id number] metroNIDAZOLE-NS PMX 500 100 mg In Saline 1 100ml.bag @ 100 mls/hr IVPB Q6HR [facility] Rx#:[id number] Oral 620 360 Output: Urine 0 Other: Weight 48.534 kg HEENT: Anicteric conjunctiva are pink and moist nasal mucosa grossly intact without significant lesions, there is no thrush. Neck: The neck is supple without significant lymphadenopathy or thyromegaly. Lungs: Good bilateral air entry without significant crackles or wheezing. There is no significant bronchial sounds. There is no egophony or dullness. Heart: Regular rate and rhythm with an audible S1-S2, no S3 no S4. There is no significant murmur click or rub, PMI was nondisplaced. Abdomen: Positive bowel sounds soft tenderness related to the recent surgery without palpable masses or organomegaly. There was no guarding or rebound. Extremities: The upper extremities have excellent pulses they are symmetric, no significant petechiae or telangiectasia. Right upper extremity has a fistula in place that is with thrill and bruit. No splinter hemorrhages were noted. The lower extremities are free from significant edema. The peripheral pulses were 2+ and symmetric. Neuro: Awake alert oriented to person place and time. There are no acute new gross focal sensory motor deficits. Results CBC & Chem 7: 03/02/18 07:11 03/02/18 07:11 Labs: Abnormal Lab Results - Last 24 Hours (Table) 03/02/18 03/02/18 Range/Units 07:11 07:11 WBC 18.5 H (3.8-10.6) k/uL MCV 102.2 H (80.0-100.0) fL Neutrophils # 15.7 H (1.3-7.7) k/uL Sodium 135 L (137-145) mmol/L Chloride 97 L (98-107) mmol/L Carbon Dioxide 17 L (22-30) mmol/L BUN 53 H (7-17) mg/dL Creatinine 14.60 H* (0.52-1.04) mg/dL Laboratory Results WBC 18.5 k/uL (3.8-10.6) H 03/02/18 07:11 RBC 4.03 m/uL (3.80-5.40) 03/02/18 07:11 Hgb 13.5 gm/dL (11.4-16.0) 03/02/18 07:11 Hct 41.1 % (34.0-46.0) 03/02/18 07:11 MCV 102.2 fL (80.0-100.0) H 03/02/18 07:11 MCH 33.4 pg (25.0-35.0) 03/02/18 07:11 MCHC 32.7 g/dL (31.0-37.0) 03/02/18 07:11 RDW 13.7 % (11.5-15.5) 03/02/18 07:11 Plt Count 276 k/uL (150-450) 03/02/18 07:11 Neutrophils % 85 % 03/02/18 07:11 Lymphocytes % 8 % 03/02/18 07:11 Monocytes % 5 % 03/02/18 07:11 Eosinophils % 0 % 03/02/18 07:11 Basophils % 0 % 03/02/18 07:11 Neutrophils # 15.7 k/uL (1.3-7.7) H 03/02/18 07:11 Lymphocytes # 1.5 k/uL (1.0-4.8) 03/02/18 07:11 Monocytes # 0.9 k/uL (0-1.0) 03/02/18 07:11 Eosinophils # 0.0 k/uL (0-0.7) 03/02/18 07:11 Basophils # 0.1 k/uL (0-0.2) 03/02/18 07:11 Macrocytosis Slight 03/02/18 07:11 Sodium 135 mmol/L (137-145) L 03/02/18 07:11 Potassium 4.5 mmol/L (3.5-5.1) 03/02/18 07:11 Chloride 97 mmol/L (98-107) L 03/02/18 07:11 Carbon Dioxide 17 mmol/L (22-30) L 03/02/18 07:11 Anion Gap 21 mmol/L 03/02/18 07:11 BUN 53 mg/dL (7-17) H 03/02/18 07:11 Creatinine 14.60 mg/dL (0.52-1.04) H* 03/02/18 07:11 Est GFR (CKD-EPI)AfAm 3 (>60 ml/min/1.73 sqM) 03/02/18 07:11 Est GFR (CKD-EPI)NonAf 2 (>60 ml/min/1.73 sqM) 03/02/18 07:11 Glucose 98 mg/dL (74-99) 03/02/18 07:11 Calcium 9.5 mg/dL (8.4-10.2) 03/02/18 07:11 Blood Type O Positive 02/19/18 14:09 Blood Type Recheck No 02/19/18 14:09 Antibody Screen NEGATIVE 02/19/18 14:09 Spec Expiration Date 03/03/2018230802/19/18 14:09 Assessment and Plan (1) Volvulus of sigmoid colon Current Visit: Yes Status: Acute Code(s): K56.2 - VOLVULUS SNOMED Code(s) : 944655699 (2) Peritoneal dialysis catheter in place Current Visit: Yes Status: Acute Code(s): Z99.2 - DEPENDENCE ON RENAL DIALYSIS SNOMED Code(s): 104403404 (3) Body mass index (BMI) 19.9 or less, adult Current Visit: Yes Status: Acute Code(s): Z68.1 - BODY MASS INDEX (BMI) 19.9 OR LESS, ADULT SNOMED Code(s): 410752350 (4) Anemia due to chronic kidney disease Current Visit: Yes Status: Acute Code(s): N18.9 - CHRONIC KIDNEY DISEASE, UNSPECIFIED; D63.1 - ANEMIA IN CHRONIC KIDNEY DISEASE SNOMED Code(s): 401661707 (5) Leukocytosis (leucocytosis) Narrative/Plan: 62-year-old woman who has multiple medical troubles including polycystic kidney disease was having increasing difficulties with abdominal pain. Workup revealed evidence of a sigmoid volvulus she's now had a resection of this performed. She's doing modestly well postoperatively. But continues to have some leukocytosis. 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 Owen, his been monitoring her leukocytosis for several months. Workup did not reveal evidence of any significant underlying infections. The patient however does have the significant abdominal pain that is now improved after the resection of her sigmoid volvulus. It is likely that she was having ongoing inflammation related to this abnormality likely why she was having increasing difficulties with the peritoneal dialysis and its lack of effectiveness. Consequently the increasing uremia and chronic inflammation of the abdominal cavity is likely etiology of her chronic leukocytosis since to other active infection is noted at this point in time. Receiving antimicrobial therapy after her surgery. The patient relates that her family members can bring in a log of her leukocytosis over the last few months may further help clarify. It is neutrophil predominant without evidence of any left shift or precursors. The patient relates when she is well she is a candidate for renal transplantation and hopefully will get another call for a transplant, apparently while she's been ill she received a call but had to be turned down because of her current illness. Current Visit: Yes Status: Acute Code(s): D72.829 - ELEVATED WHITE BLOOD CELL COUNT, UNSPECIFIED SNOMED Code(s): 737038792
[2018-03-03] MEDS: HEPARIN SODIUM,PORCINE 5,000 UNIT/ML 1 ML VIAL SQ SCH ×4 (00:42→23:39)
[2018-03-03 03:15] VITALS: RESP 16
[2018-03-03] MEDS: ONDANSETRON 4 MG/2 ML VIAL IVP PRN (04:56)
[2018-03-03] MEDS: SODIUM CHLORIDE 0.9% 1,000 ML IV SCH (05:23)
[2018-03-03] MEDS: LEVOTHYROXINE 100 MCG TAB PO SCH (06:57)
[2018-03-03 07:56] LABS: Calcium 8.9 mg/dL (8.4-10.2); Potassium 4.5 mmol/L (3.5-5.1)
[2018-03-03 08:21] LABS: Basophils % (A) 0 %; Eosinophils % (A) 0 %; HCT 36.9 % (34.0-46.0); HGB 12.2 gm/dL (11.4-16.0); Lymphocytes # (A) 0.7 k/uL (1.0-4.8); Lymphocytes % (A) 5 %; MCV 102.8 fL (80.0-100.0); Macrocytosis Slight; Monocytes # (A) 0.9 k/uL (0-1.0); Monocytes % (A) 6 %; Neutrophils # (A) 12.4 k/uL (1.3-7.7); Neutrophils % (A) 88 %; Platelet Count 198 k/uL (150-450); RBC 3.59 m/uL (3.80-5.40); RDW 13.5 % (11.5-15.5); WBC 14.1 k/uL (3.8-10.6)
[2018-03-03] MEDS: SEVELAMER 800 MG TAB PO SCH ×3 (10:55→18:02)
[2018-03-03] MEDS: FOLIC ACID-VIT B COMPLEX-VIT C 1 CAP PO SCH (10:56)
[2018-03-03] MEDS: PIPERACILLIN-TAZOBACTAM 3.375 GM in DEXTROSE/WATER 1 50ML.BAG IVPB SCH ×2 (10:56→21:52)
[2018-03-03] MEDS: FAMOTIDINE 20 MG/2 ML VIAL IV SCH ×2 (10:56→21:52)
[2018-03-03] MEDS: MORPHINE SULFATE 4MG/4ML SYRG IVP PRN (11:05)
--- NOTE | 2018-03-03 11:22 | P.PN ---
Subjective Progress Note Date: 03/03/18 Patient is status post sigmoid colectomy for sigmoid volvulus. "I feel great." She denies any abdominal pain. No reports of abdominal distention. No nausea and vomiting. Pain is well-controlled. She has been seen by infectious disease for persistent preexistent leukocytosis. She is end-stage renal disease and dialysis dependent. Objective - Vital Signs Vital signs: Vital Signs Temp 98.1 F 03/03/18 02:15 Pulse 73 03/03/18 02:15 Resp 16 03/03/18 02:15 BP 137/79 03/03/18 02:15 Pulse Ox 95 03/03/18 07:07 Intake & Output 03/02/18 03/03/18 03/03/18 18:59 06:59 18:59 Intake Total 1480 550 120 Output Total 0 Balance 1480 550 120 Weight 48.534 kg Intake: Intake, IV Titration 500 550 Amount Piperacillin-Tazobactam 3 50 .375 gm In Dextrose/Water 1 50ml.bag @ 12.5 mls/hr IVPB Q12HR [facility] Rx#: [id number] Piperacillin-Tazobactam 3 350 .375 gm In Dextrose/Water 1 50ml.bag @ 12.5 mls/hr IVPB Q8HR [facility] Rx#: [id number] Sodium Chloride 0.9% 1, 550 000 ml @ 50 mls/hr IV . Q20H [facility] Rx#:[id number] metroNIDAZOLE-NS PMX 500 100 mg In Saline 1 100ml.bag @ 100 mls/hr IVPB Q6HR [facility] Rx#:[id number] Oral 980 120 Output: Urine 0 - Exam GENERAL: Well developed and in no acute distress. Pleasant. HEENT: No sclera icterus. Extraocular movements grossly intact. Moist buccal mucosa. Head is atraumatic, normocephalic. Hears conversational speech. No nasal drainage. CHEST: Non-labored respirations and equal bilateral excursions. CARDIOVASCULAR: Regular rate and rhythm. Left upper arm AV shunt functioning ABDOMEN: Soft, nondistended. Incisions clean dry and intact. No signs of infection. No cellulitis. MUSCULOSKELETAL: No clubbing, cyanosis or edema. NEUROLOGIC: No focal or lateralizing signs. PSYCH: Appropriate affect. Alert and oriented to person, place and time. SKIN: Good skin turgor. Well perfused. - Labs CBC & Chem 7: 03/03/18 06:42 03/03/18 06:42 Labs: Abnormal Lab Results - Last 24 Hours (Table) 03/03/18 03/03/18 Range/Units 06:42 06:42 WBC 14.1 H (3.8-10.6) k/uL RBC 3.59 L (3.80-5.40) m/uL MCV 102.8 H (80.0-100.0) fL Neutrophils # 12.4 H (1.3-7.7) k/uL Lymphocytes # 0.7 L (1.0-4.8) k/uL Sodium 132 L (137-145) mmol/L Carbon Dioxide 12 L (22-30) mmol/L BUN 64 H (7-17) mg/dL Creatinine 15.68 H* (0.52-1.04) mg/dL Assessment and Plan (1) Volvulus of sigmoid colon Current Visit: Yes Status: Acute Code(s): K56.2 - VOLVULUS SNOMED Code(s) : 002837035 (2) Peritoneal dialysis catheter in place Current Visit: Yes Status: Acute Code(s): Z99.2 - DEPENDENCE ON RENAL DIALYSIS SNOMED Code(s): 605915018 (3) Dependence on renal dialysis Current Visit: Yes Status: Acute Code(s): Z99.2 - DEPENDENCE ON RENAL DIALYSIS SNOMED Code(s): 164673471 (4) End stage renal disease Current Visit: Yes Status: Acute Code(s): N18.6 - END STAGE RENAL DISEASE SNOMED Code(s): 22837013 (5) Chronic constipation Current Visit: Yes Status: Acute Code(s): K59.09 - OTHER CONSTIPATION SNOMED Code(s): 692819179 (6) Anemia due to chronic kidney disease Current Visit: Yes Status: Acute Code(s): N18.9 - CHRONIC KIDNEY DISEASE, UNSPECIFIED; D63.1 - ANEMIA IN CHRONIC KIDNEY DISEASE SNOMED Code(s): 145401814 (7) Underweight Current Visit: Yes Status: Acute Code(s): R63.6 - UNDERWEIGHT SNOMED Code( s): 843598524 (8) Leukocytosis (leucocytosis) Current Visit: Yes Status: Acute Code(s): D72.829 - ELEVATED WHITE BLOOD CELL COUNT, UNSPECIFIED SNOMED Code(s): 374797168 (9) Body mass index (BMI) 19.9 or less, adult Current Visit: Yes Status: Acute Code(s): Z68.1 - BODY MASS INDEX (BMI) 19.9 OR LESS, ADULT SNOMED Code(s): 046202168 Plan: 1. Her CBC has improved. 2. Still pending nephrology regarding dialysis. 3. Potential discharge within 24 hours.
--- NOTE | 2018-03-03 14:25 | PN ---
PROGRESS NOTE DATE OF SERVICE: March 03, 2018. PRESENT COMPLAINT: Abdominal surgery. INTERVAL HISTORY: Patient is status post sigmoid colectomy. Still having abdominal pain. Some nausea. On clear liquids. Has not passed any flatus. Sitting up on a chair. The patient will be started on hemodialysis, being switched from peritoneal dialysis. REVIEW OF SYSTEMS: Done for constitutional, cardiovascular, cardiovascular, GI, pulmonary; relevant findings as above. CURRENT MEDICATIONS: Include IV Zosyn. PHYSICAL EXAMINATION: Temperature 98.1 pulse 73, respiratory rate 16, blood pressure 137/79, pulse ox 95% on room air. General appearance: Sitting up in a chair, awake. Eyes pupils are equal. Conjunctivae normal. HEENT: External appearance of nose and ears normal. Oral cavity normal. Neck JVD not raised. Mass not palpable. Respiratory effort lungs are clear. Cardiovascular 1st and 2nd sounds normal. No edema. Abdomen: Tenderness present. Bowel sounds are sluggish. PD catheter in place. Psychiatry: Alert and oriented x3. Mood and affect normal. INVESTIGATIONS: White count 14.1, potassium 4.5, BUN 64, creatinine 15.68. ASSESSMENT: 1. Status post sigmoid colectomy for redundant sigmoid colon. 2. Metabolic acidosis from renal failure. 3. End-stage kidney disease, patient on has been on peritoneal dialysis now to be switched over to hemodialysis. 4. Hypothyroid. 5. Polycystic kidney disease. The patient is on transplant list. 6. Chronic kidney disease from mineral bone disease. PLAN: Continue current medication and treatment plan. Care was discussed with the patient. Encouraged to ambulate. MMODL / IJN: [id number] /
[2018-03-03] MEDS ORDERED: MORPHINE ORAL SOLN 10 MG/5 ML CUP PO PRN (14:29)
--- NOTE | 2018-03-03 15:25 | PN ---
PROGRESS NOTE Patient is seen for followup for end-stage renal disease. She is currently sitting up in a bedside chair. She is comfortable. Her pain is significantly improved from the surgery. The patient has been tolerating oral intake. EXAMINATION: Blood pressure is 136/80, heart rate 65 per minute. She is afebrile. Examination of the heart S1, S2. Examination of lungs bilateral breath sounds are heard. ABDOMEN: Soft. Minimal tenderness noted. Examination of the lower extremities shows no evidence of edema. The patient has a right arm AV fistula. LAB: Show sodium of 132, potassium 4.5, serum creatinine 15.68, hemoglobin 12.2 g/dL. ASSESSMENT: 1. End-stage renal disease, on hemodialysis currently. The patient had been on peritoneal dialysis, which will now be held, given her recent abdominal surgery. The patient will be dialyzed tomorrow and she can resume her outpatient schedule on Sunday. 2. Status post sigmoid resection for chronic constipation and bowel obstruction and sigmoid volvulus. 3. Volume depletion, currently improved. Will discontinue the IV fluids. PLAN: 1. DC IV fluids. 2. Hemodialysis in a.m. 3. Then patient can be discharged from nephrology standpoint tomorrow and she will follow up as outpatient for dialysis on Sunday. 4. Continue to hold off on peritoneal dialysis for now. MMODL / IJN: [id number] /
[2018-03-04 06:16] LABS: Basophils # (A) 0.1 k/uL (0-0.2); Basophils % (A) 1 %; Eosinophils # (A) 0.1 k/uL (0-0.7); Eosinophils % (A) 1 %; HCT 35.8 % (34.0-46.0); HGB 11.7 gm/dL (11.4-16.0); Lymphocytes # (A) 1.1 k/uL (1.0-4.8); Lymphocytes % (A) 9 %; MCH 33.4 pg (25.0-35.0); MCHC 32.7 g/dL (31.0-37.0); MCV 102.3 fL (80.0-100.0); Macrocytosis Slight; Monocytes # (A) 0.7 k/uL (0-1.0); Monocytes % (A) 6 %; Neutrophils # (A) 9.8 k/uL (1.3-7.7); Neutrophils % (A) 82 %; Platelet Count 198 k/uL (150-450); RDW 13.5 % (11.5-15.5)
[2018-03-04 06:33] LABS: Calcium 8.8 mg/dL (8.4-10.2); Potassium 3.8 mmol/L (3.5-5.1)
[2018-03-04] MEDS: ONDANSETRON 4 MG/2 ML VIAL IVP PRN (07:53)
[2018-03-04] MEDS: METOCLOPRAMIDE 5 MG/ML 2 ML VIAL IVP PRN (08:40)
[2018-03-04] MEDS: PIPERACILLIN-TAZOBACTAM 3.375 GM in DEXTROSE/WATER 1 50ML.BAG IVPB SCH (08:41)
[2018-03-04] MEDS: HEPARIN SODIUM,PORCINE 5,000 UNIT/ML 1 ML VIAL SQ SCH (08:41)
[2018-03-04] MEDS: FOLIC ACID-VIT B COMPLEX-VIT C 1 CAP PO SCH (09:16)
[2018-03-04] MEDS: FAMOTIDINE 20 MG/2 ML VIAL IV SCH (09:17)
[2018-03-04] MEDS: LEVOTHYROXINE 100 MCG TAB PO SCH (09:17)
[2018-03-04] MEDS: SEVELAMER 800 MG TAB PO SCH ×2 (09:17→15:45)
--- NOTE | 2018-03-04 11:35 | P.DS ---
<Latha Mathews - Last Filed: 03/04/18 11:16> Providers Date of admission: 03/01/18 09:29 Expected date of discharge: 03/04/18 Attending physician: Kerri Marcelo Consults: 03/01/18 14:19 Consult Physician Routine Consulting Provider: Joselin Ramirez Consult Reason/Comments: Dialysis management via AV shunt Do you want consulting provider notified?: Yes 03/02/18 12:29 Consult Physician Routine Consulting Provider: Humza Funk Consult Reason/Comments: Medical management Do you want consulting provider notified?: Yes 03/02/18 12:32 Consult Physician Routine Consulting Provider: Eliud Foote Consult Reason/Comments: Antibiotic management renal failure Do you want consulting provider notified?: Yes Primary care physician: Physician Nonstaff Hospital Course: 8-year-old female who has had a long-standing history of chronic constipation including large bowel obstruction secondary to sigmoid volvulus presented to undergo robotic sigmoid colectomy done on March 01 patient also has a history of end-stage renal disease hemodialysis dependent which was restarted postprocedure. The day of discharge patient had a bowel movement there was no nausea vomiting. Tolerating diet Patient was dialyzed on the day of discharge. All labs were noted and reviewed. The white count on admission 14.3 day of discharge 12. Patient was seen by Dr. Foote for the leukocytosis afebrile. Patient's patient resource specialist Dr. Owen had been monitoring the leukocytosis for several months and workup did not reveal any evidence of any significant underlying infection Patient was felt to be stable and appropriate to proceed with a discharge to home Impression discharge diagnoses 1. Sigmoid volvulus. 2. End-stage renal disease, dialysis dependent 3. Chronic constipation. 4. Iron deficiency anemia due to chronic disease 5. Kidney transplant candidate 6. Peritoneal dialysis status 7. Peritoneal adhesion 8. Anuria 9. BMI 18.4 Robotic-assisted daVinci Xi laparoscopic sigmoid colectomy, multi-port done on March 01 Leukocytosis chronic Chronic inflammation of the abdominal cavity likely etiology of chronic leukocytosis no evidence of active infection The above impression and plan of care have been discussed and directed by signing physician. Latha Mathews nurse practitioner acting as scribe for signing physician. Plan - Discharge Summary Discharge Rx Participant: Yes New Discharge Prescriptions: New HYDROcodone/APAP 5-325MG [[place] 5-325] 1 tab PO Q6HR PRN #20 tab PRN Reason: Pain Continue Levothyroxine Sodium [Synthroid] 100 mcg PO DAILY Ferrous Sulfate [Iron (65 MG Elemental)] 325 mg PO DAILY Renaplex-D 1 tab PO DAILY Velphoro 1,000 mg PO AC-TID Discharge Medication List Ferrous Sulfate [Iron (65 MG Elemental)] 325 mg PO DAILY 12/07/17 [History] Levothyroxine Sodium [Synthroid] 100 mcg PO DAILY 12/07/17 [History] Renaplex-D 1 tab PO DAILY 12/07/17 [History] Velphoro 1,000 mg PO AC-TID 02/20/18 [History] HYDROcodone/APAP 5-325MG [[place] 5-325] 1 tab PO Q6HR PRN #20 tab 03/04/18 [Rx] Follow up Appointment(s)/Referral(s): Kerri Marcelo MD [STAFF PHYSICIAN] - 03/19/18 2:20 pm (Appointment set at [facility]) Patient Instructions/Handouts: Clear Liquid Diet (DC) Activity/Diet/Wound Care/Special Instructions: No tub bath soak for six weeks. Shower daily. No lifting over 10 pounds for the next 6 weeks. Wear abdominal binder until seen in the follow-up visit with Dr. Marcelo May use ice packs to surgical site. No driving while taking narcotic for pain. Clear liquid diet Discharge Disposition: HOME SELF-CARE <Kerri Marcelo - Last Filed: 03/04/18 14:36> - Discharge Diagnosis(es) (1) Volvulus of sigmoid colon Current Visit: Yes Status: Acute (2) Peritoneal dialysis catheter in place Current Visit: Yes Status: Acute (3) Dependence on renal dialysis Current Visit: Yes Status: Acute (4) End stage renal disease Current Visit: Yes Status: Acute (5) Chronic constipation Current Visit: Yes Status: Acute (6) Anemia due to chronic kidney disease Current Visit: Yes Status: Acute (7) Underweight Current Visit: Yes Status: Acute (8) Leukocytosis (leucocytosis) Current Visit: Yes Status: Acute (9) Body mass index (BMI) 19.9 or less, adult Current Visit: Yes Status: Acute
--- NOTE | 2018-03-04 13:09 | PN ---
PROGRESS NOTE Patient is seen for followup for end-stage renal disease. She will be dialyzed today and she can be discharged post dialysis. The patient had a sigmoid colectomy for chronic intestinal obstruction and constipation. She was on PD and her PD catheter is still in place and she will be switching over to hemo temporarily. PHYSICAL EXAMINATION: On examination, blood pressure is 133/82, heart rate 86 per minute. She is afebrile. EXAMINATION OF THE HEART: S1 and S2. EXAMINATION OF THE LUNGS: Bilateral breath sounds are heard. Abdomen is soft, nontender. Examination of the lower extremities shows no evidence of edema. LABS: Labs show serum creatinine 16.5, sodium 131, hemoglobin 11.7 g/dL. ASSESSMENT: 1. End-stage renal disease, switching from peritoneal dialysis to hemodialysis secondary to abdominal surgery. Patient will have her first treatment of hemodialysis today. She is scheduled for hemodialysis again tomorrow as outpatient. 2. Severe metabolic acidosis secondary to renal failure and GI fluid loss. Expect improvement with dialysis. 3. Status post sigmoid colectomy for chronic constipation and intestinal obstruction and sigmoid volvulus. PLAN: Hemodialysis today and then again in a.m. Patient was reluctant to have hemodialysis earlier. She was advised that her serum creatinine is significantly elevated and she will benefit from starting hemodialysis. MMODL / IJN: [id number] /
[2018-03-04 15:47] VITALS: BP 105/71; PULSE 63; TEMP 97.8
[2018-03-05] MEDS ORDERED: FAMOTIDINE 20 MG/2 ML VIAL IV SCH (09:00)
== END 2018-03-04 16:22 | disposition home or self-care (01) | DRG 329 ==
LOC: 2ORMAIN 09:29 → 3SUR 14:42
PROVIDERS: ADMIT Surgery Plastic and Reconstructive Surgery; ATTEND Surgery Plastic and Reconstructive Surgery
PROC: 8E0W4CZ Robotic Assisted Procedure of Trunk Region, Percutaneous Endoscopic Approach (ICD-10-PCS; 2018-03-01)
PROC: 0DTN4ZZ Resection of Sigmoid Colon, Percutaneous Endoscopic Approach (ICD-10-PCS; principal; 2018-03-01 12:00)
PROC: 5A1D70Z Performance of Urinary Filtration, Intermittent, Less than 6 Hours Per Day (ICD-10-PCS; 2018-03-04)
DX: K56.2 Volvulus (principal); N18.6 End stage renal disease; Z76.82 Awaiting organ transplant status; E87.2 Acidosis; E44.0 Moderate protein-calorie malnutrition; Q43.8 Other specified congenital malformations of intestine; Q61.3 Polycystic kidney, unspecified; Z68.1 Body mass index [BMI] 19.9 or less, adult; D63.1 Anemia in chronic kidney disease; K59.09 Other constipation; K66.0 Peritoneal adhesions (postprocedural) (postinfection); M89.9 Disorder of bone, unspecified; E89.0 Postprocedural hypothyroidism; F12.90 Cannabis use, unspecified, uncomplicated; E86.9 Volume depletion, unspecified; Z87.891 Personal history of nicotine dependence; Z80.9 Family history of malignant neoplasm, unspecified; Z71.3 Dietary counseling and surveillance; Z86.718 Personal history of other venous thrombosis and embolism; Z79.899 Other long term (current) drug therapy; Z99.2 Dependence on renal dialysis; Z95.828 Presence of other vascular implants and grafts; Z88.6 Allergy status to analgesic agent; Z87.19 Personal history of other diseases of the digestive system; Z82.49 Family history of ischemic heart disease and other diseases of the circulatory system; Z83.2 Family history of diseases of the blood and blood-forming organs and certain disorders involving the immune mechanism
CPT/HCPCS: 80048; 82728; 83540; 83550; 84132; 85025; 86850; 86900; 86901; 88307; 94760